=== PATIENT | female | born 1970 | race Caucasian/White ===

== ENCOUNTER 2023-10-14 07:00 | Emergency (ER) | payer OTHER ==
[2023-10-14] MEDS ORDERED: ONDANSETRON 4 MG/2 ML VIAL ONE (07:20)
[2023-10-14] MEDS ORDERED: KETOROLAC 30 MG/ML INJ ONE (07:20)
[2023-10-14] MEDS ORDERED: MORPHINE 4 MG/ML SYR ONE (07:21)
[2023-10-14] MEDS ORDERED: NA CHLORIDE 0.9% 1,000 ML ONE ×2 (07:21→09:14)
[2023-10-14 07:39] LABS: Absolute Eosinophils 0.2 K/uL (0-0.5); Absolute Lymphocytes (CBC) 1.4 K/uL (0.7-4.9); Absolute Monocytes 0.8 K/uL (0.1-1.3); Absolute Neutrophil 4.6 K/uL (1.8-8.0); Basophils % 0.7 % (0-1.3); Eosinophils % 2.3 % (0-4.4); Hematocrit 37.2 % (36.0-45.0); Hemoglobin 12.5 g/dL (12.0-15.0); Lymphocytes % 19.5 % (15.3-44.8); MCH 30.7 pg (27.0-35.0); MCHC 33.6 g/dL (32.0-36.0); MCV 91.4 fL (80-100); MPV 8.3 fL (7.6-11.3); Monocytes % 11.2 % (3.3-12.3); Neutrophils % 66.3 % (41.7-73.7); Platelets 204 thou/uL (152-406); RBC Red Blood Cell Count 4.07 M/uL (3.86-4.86); Red Cell Distribution Width 12.7 % (12.1-15.2)
[2023-10-14 07:53] LABS: Albumin 3.2 g/dL (3.4-5.0); Albumin/Globulin Ratio 0.9 (1.1-1.8); Bilirubin Total 0.5 mg/dL (0.2-1.0); Globulin 3.4 g/dL (2.3-3.5); Protein, Total 6.6 g/dL (6.4-8.2)
--- NOTE | 2023-10-14 08:16 | RAD REPORT ---
EXAM DESCRIPTION: CT - Abdomen Pelvis Wo Contrast - 10/14/2023 7:47 am CLINICAL HISTORY: FLANK PAIN COMPARISON: No comparisons TECHNIQUE: Thin cut axial CT imaging of the abdomen and pelvis was performed without IV contrast. Mu ltiplanar reformats were generated and reviewed. All CT scans are performed using dose optimization technique as appropriate and may include automated exposure control or mA/KV adjustment according to patient size. FINDINGS: No suspicious findings in the lung bases. The liver, spleen, adrenal glands, and pancreas show no suspicious findings. Gallbladder and biliary tree are also without suspicious finding. At least moderate left hydroureteronephrosis. 5 mm calculus at the left vesicoureteral junction. 1-2 mm nonobstructing calculi at the left lower pole. Symmetric renal contour, without suspicious parench ymal findings within limits of noncontrast technique. No dilated bowel loops or bowel wall thickening. No free air, free fluid or inflammatory stranding. N o hernia, mass or bulky lymphadenopathy. The urinary bladder is decompressed limiting evaluation. No suspicious bony findings. IMPRESSION: At least moderate left hydroureteronephrosis with a 5 mm left vesicoureteral junction ob structing calculus. 1- 2 mm nonobstructing left lower pole calculus. The findings were communicated to Richard Cedillo on 10/14/2023 at 08:11 hours.
[2023-10-14 09:41] LABS: Sqamous Epithelial <5 /HPF (None Seen); Urine Bacteria None Seen /HPF (<20); Urine Bilirubin NEGATIVE (Negative); Urine Blood 2+ (Negative); Urine Clarity Clear (Clear); Urine Color Yellow (Yellow); Urine Culture Reflex Order NOT NEEDED; Urine Glucose NEGATIVE (Negative); Urine Ketones NEGATIVE (Negative); Urine Microscopic Reflex YN ORDER UMIC; Urine Mucus Slight /HPF (None Seen); Urine Nitrite NEGATIVE (Negative); Urine Protein TRACE (Negative); Urine Urobilinogen Normal (Normal); Urine WBC <5 /HPF (<5); Urine pH 5.5 (5.0-7.0)
--- NOTE | 2023-10-14 10:05 | EDPHYS ---
Physician Documentation [facility] Name: Merline Trotter Age: 53 yrs Sex: Female : 1970 Arrival Date: 10/14/2023 Time: 07:00 Bed 4 Private MD: David Omalley ED Physician Richard Cedillo HPI: 10/13 07:17 This 53 yrs old Female presents to ER via Unassigned with complaints of Possible Kidney rt Stone. 07:17 Patient presents to the ED with a left flank pain starting last night. She does report rt a history of kidney stones. She reports nausea and vomiting. Pain is sharp, nonradiating. It is severe in severity, no other aggravating or alleviating factors.. Historical: - Allergies: 07:15 No Known Allergies; ll1 - PMHx: 07:15 Kidney stone; ll1 - PSHx: 07:15 oral SX; ll1 - Immunization history:: Adult Immunizations up to date. - Infectious Disease History:: Denies. - Social history:: Smoking status: Patient denies any tobacco usage or history of. - Family history:: not pertinent. ROS: 07:17 Constitutional: Negative for fever, chills, and weight loss, Cardiovascular: Negative rt for chest pain, palpitations, and edema, Respiratory: Negative for shortness of breath, cough, wheezing, and pleuritic chest pain, MS/Extremity: Negative for injury and deformity, Skin: Negative for injury, rash, and discoloration, Neuro: Negative for headache, weakness, numbness, tingling, and seizure, Psych: Negative for depression, anxiety, suicide ideation, homicidal ideation, and hallucinations, 07:17 Abdomen/GI: Positive for nausea and vomiting, 07:17 Back: Positive for flank pain, Negative for injury or acute deformity, Exam: 07:17 Constitutional: This is a well developed, well nourished patient who is awake, alert, rt and in no acute distress. Head/Face: Normocephalic, atraumatic. Chest/axilla: Normal chest wall appearance and motion. Nontender with no deformity. No lesions are appreciated. Cardiovascular: Regular rate and rhythm with a normal S1 and S2. No gallops, murmurs, or rubs. Normal PMI, no JVD. No pulse deficits. Respiratory: Lungs have equal breath sounds bilaterally, clear to auscultation and percussion. No rales, rhonchi or wheezes noted. No increased work of breathing, no retractions or nasal flaring. Abdomen/GI: Soft, non-tender, with normal bowel sounds. No distension or tympany. No guarding or rebound. No evidence of tenderness throughout. Skin: Warm, dry with normal turgor. Normal color with no rashes, no lesions, and no evidence of cellulitis. MS/ Extremity: Pulses equal, no cyanosis. Neurovascular intact. Full, normal range of motion. Neuro: Awake and alert, GCS 15, oriented to person, place, time, and situation. Cranial nerves II-XII grossly intact. Motor strength 5/5 in all extremities. Sensory grossly intact. Cerebellar exam normal. Normal gait. Psych: Awake, alert, with orientation to person, place and time. Behavior, mood, and affect are within normal limits. Vital Signs: 07:16 BP 128 / 81; Pulse 65; Resp 16; Temp 97.2; Pulse Ox 96% on R/A; Weight 61.23 kg; Height ll1 5 ft. 4 in. ; Pain 10/10; 08:52 BP 86 / 57; Pulse 65; Resp 16; Pulse Ox 94% ; bp 10:17 BP 93 / 61; Pulse 58; Resp 15; Temp 98; Pulse Ox 95% ; bp 07:16 Body Mass Index 23.17 (61.23 kg, 162.56 cm) ll1 07:16 Pain Scale: Adult ll1 MDM: 07:06 Patient medically screened. rt 10:33 Differential Diagnosis Ureteral stone, pyelonephritis. Data reviewed: vital signs, rt nurses notes, lab test result(s), radiologic studies. I considered the following discharge prescriptions or medication management in the emergency department Medications were administered in the Emergency Department. See MAR. Independent interpretation of the following test(s) in the Emergency Department CT Scan: My interpretation is Ureteral stone seen on my interpretation of CT scan images. Care significantly affected by the following chronic conditions: Kidney stones. Counseling: I had a detailed discussion with the patient and/or guardian regarding the historical points, exam findings, and any diagnostic results supporting the discharge/admit diagnosis, lab results, radiology results, the need for outpatient follow up, to return to the emergency department if symptoms worsen or persist or if there are any questions or concerns that arise at home. Response to treatment: the patient's symptoms have markedly improved after treatment. 10/13 07:11 Order name: CBC with Diff; Complete Time: 08:22 rt 10/13 07:11 Order name: CMP; Complete Time: 08:22 rt 10/13 07:11 Order name: Lipase; Complete Time: 08:22 rt 10/13 07:11 Order name: Urinalysis w/ reflexes; Complete Time: 09:49 rt 10/13 07:11 Order name: CT Abd/Pelvis - Without Contrast; Complete Time: 08:22 rt 10/13 07:11 Order name: IV Saline Lock; Complete Time: 07:37 rt 10/13 07:11 Order name: Labs collected and sent; Complete Time: 07:37 rt Administered Medications: 07:37 Drug: NS 0.9% IV 1000 ml IV at 1 bolus Per protocol; 1000 mL bolus Route: IV; Rate: 1 bp bolus; Site: left forearm; 10:32 Follow up: IV Status: Completed infusion; IV Intake: 1000ml bp 07:38 Drug: TORadol - Ketorolac IVP 15 mg IVP once Route: IVP; Site: left forearm; bp 10:31 Follow up: Response: No adverse reaction bp 07:38 Drug: Ondansetron IVP 4 mg IVP once; over 2 minutes Route: IVP; Site: left forearm; bp 10:31 Follow up: Response: No adverse reaction bp 07:38 Drug: morphine IVP or IV 4 mg IVP once over 4 mins Route: IVP; Infused Over: 4 mins; bp Site: left forearm; 10:31 Follow up: Response: No adverse reaction bp 09:16 Drug: NS 0.9% IV 1000 ml IV at 1 bolus Per protocol; 1000 mL bolus Route: IV; Rate: 1 bp bolus; Site: left forearm; 10:31 Follow up: IV Status: Completed infusion; IV Intake: 1000ml bp Disposition Summary: 10/14/23 10:04 Discharge Ordered Notes: Location: Home rt Problem: an ongoing problem rt Symptoms: have improved rt Condition: Stable rt Diagnosis - Calculus of ureter rt Followup: rt - With: Tye Berkowitz MD - When: 5 - 6 days - Reason: Discharge Instructions: - Discharge Summary Sheet rt - Kidney Stones rt Forms: - Medication Reconciliation Form rt - Thank You Letter rt - Antibiotic Education rt - Prescription Opioid Use rt - Patient Portal Instructions rt - Leadership Thank You Letter rt Prescriptions: - acetaminophen-codeine 300-30 mg Oral tablet - take 1 tablet ORAL route every 6 hours as needed for pain; 18 tablet; Refills: rt 0, Product Selection Permitted - ondansetron 4 mg Oral Tablet,disintegrating - take 1 tablet ORAL route every 6 hours as needed for nausea; 18 tablet; rt Refills: 0, Product Selection Permitted Signatures: Dispatcher [employer] Henrry Talamantes, RN RN Melo Samuels RN RN ll1 Richard Cedillo MD MD rt Corrections: (The following items were deleted from the chart) 07:16 07:15 Allergies: No Known Allergies; ll1 ll1 07:16 07:15 Allergies: kidney stone; ll1 ll1
--- NOTE | 2023-10-14 10:05 | ER ---
Nurse's Notes [facility] Name: Merline Trotter Age: 53 yrs Sex: Female : 1970 Arrival Date: 10/14/2023 Time: 07:00 Bed 4 Private MD: David Omalley Diagnosis: Calculus of ureter Presentation: 10/13 07:16 Chief complaint: Patient states: Severe L flank pain with N/V since last night. ll1 Coronavirus screen: Client denies travel out of the [place] in the last 14 days. At this time, the client does not indicate any symptoms associated with coronavirus-19. Ebola Screen: Patient denies travel to an Ebola-affected area in the 21 days before illness onset. Initial Sepsis Screen: Does the patient meet any 2 criteria? No. Patient's initial sepsis screen is negative. Does the patient have a suspected source of infection? No. Patient's initial sepsis screen is negative. Risk Assessment: Do you want to hurt yourself or someone else? Patient reports no desire to harm self or others. Onset of symptoms was October 13, 2023. 07:16 Method Of Arrival: Ambulatory ll1 07:16 Acuity: MARYANA 3 ll1 Triage Assessment: 07:15 General: Appears distressed, uncomfortable, Behavior is cooperative, appropriate for bp age, anxious. Pain: Complains of pain in back. GI: Reports nausea. Historical: - Allergies: 07:15 No Known Allergies; ll1 - PMHx: 07:15 Kidney stone; ll1 - PSHx: 07:15 oral SX; ll1 - Immunization history:: Adult Immunizations up to date. - Infectious Disease History:: Denies. - Social history:: Smoking status: Patient denies any tobacco usage or history of. - Family history:: not pertinent. Screenin:38 [facility] ED Fall Risk Assessment (Adult) History of falling in the last 3 months, bp including since admission No falls in past 3 months (0 pts). Abuse screen: Denies threats or abuse. Denies injuries from another. Nutritional screening: No deficits noted. Tuberculosis screening: No symptoms or risk factors identified. Assessment: 07:20 General: SEE TRIAGE NOTE. bp 08:52 Reassessment: Patient appears in no apparent distress at this time. Patient is alert, bp oriented x 3, equal unlabored respirations, skin warm/dry/pink. 10:31 GI: Bowel sounds present X 4 quads. Abd is soft X 4 quads. bp Vital Signs: 07:16 BP 128 / 81; Pulse 65; Resp 16; Temp 97.2; Pulse Ox 96% on R/A; Weight 61.23 kg; Height ll1 5 ft. 4 in. ; Pain 10/10; 08:52 BP 86 / 57; Pulse 65; Resp 16; Pulse Ox 94% ; bp 10:17 BP 93 / 61; Pulse 58; Resp 15; Temp 98; Pulse Ox 95% ; bp 07:16 Body Mass Index 23.17 (61.23 kg, 162.56 cm) ll1 07:16 Pain Scale: Adult ll1 ED Course: 07:03 Patient arrived in ED. mr 07:03 David Omalley is Private Physician. mr 07:04 Arm band placed on Patient placed in an exam room, on a stretcher. ll1 07:05 Richard Cedillo MD is Attending Physician. rt 07:05 Otilia Prieto, RN is Primary Nurse. ha1 07:06 Henrry Patel, CHOCO is Primary Nurse. bp 07:17 Triage completed. ll1 07:37 CBC with Diff Sent. bp 07:37 Lipase Sent. bp 07:37 CMP Sent. bp 07:38 Patient has correct armband on for positive identification. bp 07:38 Inserted saline lock: 22 gauge in left forearm, using aseptic technique. Blood bp collected. 07:48 CT Abd/Pelvis - Without Contrast In Process Unspecified. EDMS 10:04 Tye Berkowitz MD is Referral Physician. rt 10:30 No provider procedures requiring assistance completed. IV discontinued, intact, bp bleeding controlled, No redness/swelling at site. Pressure dressing applied. 10:31 Provided Education on: n/a. bp Administered Medications: 07:37 Drug: NS 0.9% IV 1000 ml IV at 1 bolus Per protocol; 1000 mL bolus Route: IV; Rate: 1 bp bolus; Site: left forearm; 10:32 Follow up: IV Status: Completed infusion; IV Intake: 1000ml bp 07:38 Drug: TORadol - Ketorolac IVP 15 mg IVP once Route: IVP; Site: left forearm; bp 10:31 Follow up: Response: No adverse reaction bp 07:38 Drug: Ondansetron IVP 4 mg IVP once; over 2 minutes Route: IVP; Site: left forearm; bp 10:31 Follow up: Response: No adverse reaction bp 07:38 Drug: morphine IVP or IV 4 mg IVP once over 4 mins Route: IVP; Infused Over: 4 mins; bp Site: left forearm; 10:31 Follow up: Response: No adverse reaction bp 09:16 Drug: NS 0.9% IV 1000 ml IV at 1 bolus Per protocol; 1000 mL bolus Route: IV; Rate: 1 bp bolus; Site: left forearm; 10:31 Follow up: IV Status: Completed infusion; IV Intake: 1000ml bp Medication: 10:31 VIS not applicable for this client. bp Intake: 10:31 IV: 1000ml; Total: 1000ml. bp 10:32 IV: 1000ml; Total: 2000ml. bp Outcome: 10:04 Discharge ordered by MD. rt 10:30 Discharged to home via wheelchair, with family, bp 10:30 Condition: stable 10:30 Discharge instructions given to patient, family, Instructed on discharge instructions, follow up and referral plans. medication usage, Demonstrated understanding of instructions, follow-up care, medications, Prescriptions given X 2, 10:32 Patient left the ED. bp Signatures: Dispatcher [employer] EDMS Marnie Robledo, Juanjose Sow Henrry Patel, RN RN Melo Samuels RN RN ll1 Otilia Prieto RN RN ha1 Richard Cedillo MD MD rt Corrections: (The following items were deleted from the chart) 07:16 07:15 Allergies: No Known Allergies; ll1 ll1 07:16 07:15 Allergies: kidney stone; ll1 ll1 08:17 07:39 General: bp bp
[2023-10-14 11:06] VITALS: BP 93/61; TEMP 98; O2SAT 95
== END 2023-10-14 10:32 | disposition home or self-care (01) ==
LOC: ER 07:00
DX: N20.1 Calculus of ureter (principal); Z87.442 Personal history of urinary calculi
CPT/HCPCS: 96361; 85025; 81001; 36415; 83690; 80053; 74176; 96375; 96374; 99284; J2405; J7030 ×2